=== PATIENT | female | born 1955 | race Hispanic/Latino ===

== ENCOUNTER 2016-09-17 12:18 | Observation (INO) | payer OTHER ==
[~2016-09-17] VITALS: Ht 167.6 cm; Wt 65.8 kg
[2016-09-17] VITALS (8 sets, daily range): BP systolic 141–181; BP diastolic 53–89; PULSE 69–85; RESP 2–20; O2SAT 95–99
[2016-09-17] MEDS ORDERED: LIP40 PO (12:40)
[2016-09-17] MEDS ORDERED: METO25TA3 PO (12:40)
[2016-09-17] MEDS ORDERED: LISI-571 PO (12:40)
[2016-09-17] MEDS ORDERED: METF1000 PO (12:40)
[2016-09-17] MEDS ORDERED: CYAN10008 PO (12:40)
[2016-09-17] MEDS ORDERED: NITR0.3T6 SL (12:40)
[2016-09-17] MEDS ORDERED: CHOL200047 PO (12:40)
--- NOTE | 2016-09-17 12:42 | ED.REPORT ---
HPI-Chest Pain 40 and Over Date of Service September 17, 2016 ED Provider: Chris Ellison DO The patient is a 61 year old female w/ a hx of DM and HTN who presents to the ED due to 01/29, mid-chest chest pain onset 3 hrs ago. The patient describes mid chest pressure that is now moving down into her stomach. She took a nitro sketcher and it did not help at all. She was admitted to [facility] in [facility] for one night 8 days ago for a potential heart attack. Food does not make her symptoms worse. She denies cough, fever, and vomiting. Nursing Notes Stated Complaint: CHEST PAIN Chief Complaint: Chest Pain Nursing Notes Reviewed: Yes Allergies: Coded Allergies: No Known Allergies (Unverified , 09/17/16) Scheduled Aspirin Chew (Aspirin Chew) 81 Mg Chew 81 MG PO DAILY Atorvastatin (Lipitor) 40 Mg Tablet 80 MG PO DAILY Cholecalciferol (Vitamin D3) (Vitamin D3) 2,000 Unit Capsule 2,000 UNIT PO DAILY Cyanocobalamin (Vitamin B-12) (Vitamin B-12) 1,000 Mcg Tablet 1,000 MCG PO DAILY Lisinopril (Lisinopril) 20 Mg Tablet 20 MG PO DAILY Metformin (Glucophage) 1,000 Mg Tablet 1,000 MG PO BID Metoprolol Succinate ER (Toprol XL) 25 Mg Tablet 12.5 MG PO DAILY Scheduled PRN Nitroglycerin SL (Nitroglycerin SL) 0.4 Mg Tab.subl 0.4 MG SL PRN For Chest Pain General Time Seen by MD: 12:39 Chief Complaint Chest pain Hx Obtained From: Patient, Daughter Arrived By: Walk-in Sudden in Onset?: Yes Onset Occurred: 1 - 4 hours ago Symptom Duration: Since onset Location: : Substernal Quality: Painful Severity: Current: Pain level 10 out of 10 Recent Healthcare: Recent doctor visit, Recent hospitalization Similar Sx Previous: Yes Past Medical History Past Medical History HTN DM Smoking History Unknown if Ever Smoker Social History Other Social History: Good social support, From out of town Ambulatory Status Independent Review of Systems Constitutional: Denies: Fever Respiratory: Denies: Non-productive cough Cardiovascular: Reports: Chest pain GI: Denies: Vomiting Complete sys rev & neg: except as marked. Physical Exam Initial Vital Signs Vital Signs (First) Date Time Temp Pulse Resp B/P Pulse Ox O2 Delivery O2 Flow Rate FiO2 09/17/16 12:20 36.4 85 14 181/80 95 Room Air Initial VS: Reviewed General/Constitutional: Awake, Alert, Well appearing, Cooperative, Not toxic appearing Respiratory / Chest: Atraumatic, Breath sounds NL, Breath sounds = bilat Cardiovascular: Heart rate NL, Regular rhythm, Heart sounds NL Abdomen: Soft, Non-tender Lower Extremity / Pelvis / MS: Full range of motion, No swelling, No deformity Skin: Warm, Dry Neurologic: Oriented X3, Speech NL, No motor deficits Head / Eyes: Normocephalic, PERRL Upper Extremity / MS: Full range of motion, No swelling, No deformity Interpretation & Diagnostics Lab Results Interpretation Result Diagram: 09/17/16 1258 09/17/16 1258 Test 09/17/16 12:58 09/17/16 13:05 White Blood Count 6.6th/mm3 (3.8-10.1) Red Blood Count 4.20mil/mm3 (3.90-5.20) Hemoglobin 12.8g/dL (12.0-15.6) Hematocrit 38.0% (35.0-46.0) Mean Corpuscular Volume 90.5fL (81-100) Mean Corpuscular Hemoglobin 30.5pg (27.0-35.0) Mean Corpuscular Hemoglobin Concent 33.7% (32.0-37.0) Red Cell Distribution Width 13.1% (12.3-15.4) Platelet Count 182bil/L (150-400) Neutrophils (%) (Auto) 60.5% (40-74) Lymphocytes (%) (Auto) 29.9% (14-46) Monocytes (%) (Auto) 7.1% (4-12) Eosinophils (%) (Auto) 2.0% (0-5) Basophils (%) (Auto) 0.3% (0-3) D-Dimer < 0.50mg/L FEU (<0.50) Sodium Level 139mEq/L (134-144) Potassium Level 4.2mEq/L (3.5-5.2) Chloride Level 101mEq/L (97-108) Carbon Dioxide Level 22mmol/L (18-29) Blood Urea Nitrogen 17mg/dL (8-27) Creatinine 0.37mg/dL (0.57-1.00) Estimat Glomerular Filtration Rate 253mL/min (>59) Glucose Level 236mg/dL (60-99) Calcium Level 9.4mg/dL (8.5-10.1) Magnesium Level 2.2mg/dL (1.6-2.6) Total Bilirubin 0.8mg/dL (0.0-1.2) Aspartate Amino Transf (AST/SGOT) 20U/L (0-50) Alanine Aminotransferase (ALT/SGPT) 24U/L (0-32) Alkaline Phosphatase 94U/L (25-165) Troponin T < 0.010ug/L (0.0-0.011) Pro-B-Type Natriuretic Peptide 152.1pg/mL (0-287) Total Protein 7.4g/dL (6.4-8.4) Albumin 4.2g/dL (3.4-5.0) Hold Urine Received (Received) ECG Interpretation Time: 13:14 Interpreted by: ED physician Normal ECG Interpretation: Normal sinus rhythm (rate 79) X-Ray Chest Interpretation Chest Xray Interpretation: IMPRESSION: No acute process. Dictated by: Chanelle Quijano M.D. on 09/17/2016 at 13:16 Approved by: Chanelle Quijano M.D. on 09/17/2016 at 13:17 View: Portable Interpretation / Wet Read by: Interpret - Radiologist Re-Eval/Medical Decision Med Decision/Clinical Course This likely represents unstable angina. She continues to have intermittent chest pain despite a reassuring EKG and negative troponin. D-dimer was also negative. Will heparinize and admit for serial troponins and probable stress test. Counseled Regarding: Diagnosis, Lab results, Need for admission Discharge & Departure Primary Impression: Chest pain Chest pain type: unspecified Qualified Code: R07.9 - Chest pain, unspecified Disposition: ADMITTED TO HOSPITAL Discharge Condition All VS Reviewed: Yes Condition: Stable Referrals: [facility] [place] Attestation Portion of this note were transcribed by Linda Orozco. I, Dr. Ellison, personally performed the history, physical exam, and medical decision-making: I reviewed and confirmed the accuracy for the information in the transcribed note. Signed by: garett Watson, 09/17/16 1500 copies to: [facility] Chris Ellison DO September 17, 2016 12:42 Linda Orozco September 17, 2016 12:55
[2016-09-17] MEDS ORDERED: Ondansetron 2 mg/mL 2 mL Inj IVPUSH PRN ×2 (12:50→15:05)
[2016-09-17 13:14] LABS: BASOPHILS % (AUTO) 0.3 % (0-3); MONOCYTES % (AUTO) 7.1 % (4-12); Mean Corpuscular Hemoglobin 30.5 pg (27.0-35.0); Mean Corpuscular Volume 90.5 fL (81-100); NEUTROPHILS % (AUTO) 60.5 % (40-74); Platelet Count 182 bil/L (150-400)
--- NOTE | 2016-09-17 13:18 | DRSVH ---
PROCEDURE: X-RAY CHEST ONE VIEW, PORTABLE ([id number]) INDICATIONS: CP TECHNIQUE: One view of the chest was acquired. COMPARISON: None. FINDINGS: Surgical changes and devices: None. Lungs and pleura: No pleural effusions or pneumothorax. Lungs are clear. Mediastinum: Mediastinal contours appear normal. Heart size is normal. Bones and chest wall: No suspicious bony lesions. Overlying soft tissues appear unremarkable. IMPRESSION: No acute process. Dictated by: Chanelle Quijano M.D. on 09/17/2016 at 13:16 Approved by: Chanelle Quijano M.D. on 09/17/2016 at 13:17
[2016-09-17 13:39] LABS: TROPONIN T < 0.010 ug/L (0.0-0.011)
[2016-09-17 14:05] LABS: Magnesium 2.2 mg/dL (1.6-2.6)
[2016-09-17] MEDS ORDERED: LidocaineVisc 2%:Antacid 1:1 10 mL Syringe PO ONE (14:25)
[2016-09-17] MEDS ORDERED: NITR0.4T6 SL (14:57)
[2016-09-17] MEDS ORDERED: ASPI81TA3 PO (14:57)
[2016-09-17] MEDS ORDERED: LISI-567 PO (14:57)
[2016-09-17] MEDS ORDERED: Alum-Mag Hydrox-Simeth 30 mL Suspension PO PRN ×2 (15:05→16:10)
[2016-09-17] MEDS ORDERED: Heparin 5,000 Unit/mL Inj IVPUSH ONE (15:05)
[2016-09-17] MEDS ORDERED: Heparin 25K Unit/500mL 0.45 NS 25,000 UNIT in IV Premix 1 EACH IV ONE (15:05)
[2016-09-17] MEDS ORDERED: Heparin 25,000 UNIT in 0.9% Sodium Chloride 475 ML IV SCH (15:30)
[2016-09-17] MEDS ORDERED: Polyethylene Glycol (PEG) 17 Gm Powder PO PRN (16:10)
[2016-09-17] MEDS ORDERED: Dextrose 10% 250 ML IV PRN (16:10)
--- NOTE | 2016-09-17 16:23 | PCM.HPMED ---
Subjective Date of Service September 17, 2016 Primary Provider: Admitting Physician: Gigi Sierra Primary Care Physician: Enrike Attending Physician: Gigi Sierra Chief Complaint: Chest pain History of Present Illness: 61 year old Swedish-speaking female with past medical history notable for non- insulin dependant diabetes, hypertension, and hypercholesterolemia presents with complaint of intermittent chest pain. She describes the pain as pressure like feeling starting in her midepigastric area and radiating up and in to her left chest wall. These symptoms started about one week ago and she was hospitalized at a hospital at [place], [place] where she was supposedly told she might have a small heart attack but then she was discharged home with plan for echo and stress test as outpatient. Patient is visiting family members here this weekend and has not had a chance to have further cardiac workup yet. She denies any other associated symptoms such as SOB, nausea, vomiting, diaphoresis , palpitations, lightheadedness or dizziness with this chest pain. She notes that sitting in certain positions seems to make the pain worse while rolling to one side or the other seems to alleviate the pain. She further reports similar symptoms about one year ago at which time she underwent a stress test and cardiac catheterization but was told she does not need any stents. She works in a farm field and otherwise denies any recent heavy lifting or trauma to her chest. Review of Systems: Constitutional: Negative, except as otherwise mentioned in the history above. Ophthalmologic: Negative, except as otherwise mentioned in the history above. Cardiovascular: Negative, except as otherwise mentioned in the history above. Respiratory: Negative, except as otherwise mentioned in the history above. Gastrointestinal: Negative, except as otherwise mentioned in the history above. Genitourinary: Negative, except as otherwise mentioned in the history above. Musculoskeletal: Negative, except as otherwise mentioned in the history above. Neurological: Negative, except as otherwise mentioned in the history above. Psychiatric: Negative, except as otherwise mentioned in the history above. Hematologic/Lymphatic: Negative, except as otherwise mentioned in the history above. Allergic/Immunologic: Negative, except as otherwise mentioned in the history above. Allergies Coded Allergies: No Known Allergies (Unverified , 09/17/16) Home Medications Atorvastatin 40 Mg Tablet 80 Mg PO DAILY Lisinopril 20 Mg Tablet 20 Mg PO DAILY Metoprolol Succinate ER 25 Mg Tablet (Toprol XL) 12.5 Mg PO DAILY Nitroglycerin SL 0.4 Mg Tab.Subl 0.4 Mg SL PRN Aspirin Chew 81 Mg Chew 81 Mg PO DAILY Metformin 1,000 Mg Tablet 1,000 Mg PO BID Cholecalciferol (Vitamin D3) 2,000 Unit Capsule 2,000 Unit PO DAILY Cyanocobalamin (Vitamin B-12) 1,000 Mcg Tablet 1,000 Mcg PO DAILY Exam Vital Signs & I/O Vital Sign- Last 8 Hours Date Time Temp Pulse Resp B/P Pulse Ox O2 Delivery O2 Flow Rate FiO2 09/17/16 14:40 76 17 153/65 99 09/17/16 13:31 77 18 141/53 96 Room Air 09/17/16 12:20 36.4 85 14 181/80 95 Room Air Lab & Micro Results Laboratory Tests Test 09/17/16 12:58 09/17/16 13:05 White Blood Count 6.6th/mm3 (3.8-10.1) Red Blood Count 4.20mil/mm3 (3.90-5.20) Hemoglobin 12.8g/dL (12.0-15.6) Hematocrit 38.0% (35.0-46.0) Mean Corpuscular Volume 90.5fL (81-100) Mean Corpuscular Hemoglobin 30.5pg (27.0-35.0) Mean Corpuscular Hemoglobin Concent 33.7% (32.0-37.0) Red Cell Distribution Width 13.1% (12.3-15.4) Platelet Count 182bil/L (150-400) Neutrophils (%) (Auto) 60.5% (40-74) Lymphocytes (%) (Auto) 29.9% (14-46) Monocytes (%) (Auto) 7.1% (4-12) Eosinophils (%) (Auto) 2.0% (0-5) Basophils (%) (Auto) 0.3% (0-3) D-Dimer < 0.50mg/L FEU (<0.50) Sodium Level 139mEq/L (134-144) Potassium Level 4.2mEq/L (3.5-5.2) Chloride Level 101mEq/L (97-108) Carbon Dioxide Level 22mmol/L (18-29) Blood Urea Nitrogen 17mg/dL (8-27) Creatinine 0.37mg/dL (0.57-1.00) Estimat Glomerular Filtration Rate 253mL/min (>59) Glucose Level 236mg/dL (60-99) Calcium Level 9.4mg/dL (8.5-10.1) Magnesium Level 2.2mg/dL (1.6-2.6) Total Bilirubin 0.8mg/dL (0.0-1.2) Aspartate Amino Transf (AST/SGOT) 20U/L (0-50) Alanine Aminotransferase (ALT/SGPT) 24U/L (0-32) Alkaline Phosphatase 94U/L (25-165) Troponin T < 0.010ug/L (0.0-0.011) Pro-B-Type Natriuretic Peptide 152.1pg/mL (0-287) Total Protein 7.4g/dL (6.4-8.4) Albumin 4.2g/dL (3.4-5.0) Hold Urine Received (Received) Result Diagram: 09/17/16 1258 09/17/16 1258 PMH 1. Hypertension 2. Diabetes mellitus 3. Hypercholesterolemia Family History Father with heart disease in his 70's Social History Hx Alcohol Use: No Hx Substance Use: No Hx Tobacco Use: No Smoking Status: Never Smoker Exam Vital Signs Vital Sign - Last Date Time Temp Pulse Resp B/P Pulse Ox O2 Delivery O2 Flow Rate FiO2 09/17/16 14:40 76 17 153/65 99 09/17/16 13:31 Room Air 09/17/16 12:20 36.4 General: Alert, Oriented X3, Cooperative, No Acute Distress Head: Normal Eyes: PERRLA, EOMI, Scleral Anicteric Nose: Mucous Membr Moist/[place] Mouth: Mucous Membr Moist/[place] Neck: Supple Chest & Lungs: Chest Wall Normal, Clear to auscultation & percussion, Other ( left chest wall (near sternum) is tender to palpation) Cardiovascular: Regular Rate/Rhythm Pulses: NL carotid, radial, femoral, DP, PT Abdomen: Non-tender, Non-distended, Normoactive bowel tones, Soft Extremities: No cyanosis/clubbing/edma bilat Skin: Other (no ulcer or rash) Neurological: Grossly Neurologically Intact, Cranial Nerves 2-12 Intact, Normal Speech Lymphatic: Other Lymph Nodes (no significant lymphadenopathy) Lab and Diagnostics Result Diagram: 09/17/16 1258 09/17/16 1258 X-Rays, CTs and MRIs Date of Service: 09/17/16 1232 PROCEDURE: X-RAY CHEST ONE VIEW, PORTABLE ([id number]) IMPRESSION: No acute process. Dictated by: Chanelle Quijano M.D. on 09/17/2016 at 13:16 Approved by: Chanelle Quijano M.D. on 09/17/2016 at 13:17 12-lead ECG NSR @ about [address] elevation/depression Assessment & Plan 61 year old Swedish-speaking female with past medical history notable for non- insulin dependant diabetes, hypertension, and hypercholesterolemia presents with complaint of intermittent chest pain. # Acute chest pain, present on admission. - Admit to tele - Rule out OH, given multiple cardiac risk factors, by cycling Trop - Echo and stress test in am - ASA daily - Continue with home dose Lipitor - EKG reassuring and given pain is reproducible with palpation also reassuring and suggestive of likely musculoskeletal pain as opposed to cardiac. - Protonix incase symptoms related to GI - Given low suspicion of cardiac event and reassuring workup so far, noted above , will not continue Heparin drip that was started in ED unless Troponin start to rise or patient develop additional symptoms # Chronic hypertension, present on admission. - Continue with home medications including Lisinopril and Metoprolol # Diabetes mellitus, chronic. - ISS while inpatient - Hold home dose Metformin - HgA1C check # Hypercholesterolemia. - Check fasting lipid panel - Continue with home dose Lipitor Expected length of hospital stay is less than 2 midnights and likely home tomorrow. GI Prophylaxis: Proton Pump Inhibitor VTE Prophylaxis: Sub-Q Heparin (Unfractionated) Resuscitation Status: CPR: Attempt Resuscitation (discussed and verified with patient) Time spent 65 min Gigi Sierra September 17, 2016 16:23
[2016-09-17] MEDS: Heparin 5,000 Unit/mL Inj SUBQ SCH (16:30)
[2016-09-17] MEDS: Insulin Human REGular 300 Unit/3 mL Inj SUBQ SCH ×2 (17:00→22:00)
--- NOTE | 2016-09-17 17:30 | NUR ---
Admission Patient arrived on unit via gurney. Patient Sami speaking and accompanied by family. Surgical Services Assistant on a stick used for admission interview. Patient reports she had chest pains and recently was seen in the hospital in [facility] for chest pain, and was released to have followup testing done as an outpatient. She is here visiting over the holiday weekend, and began having increased chest pains. She denied shortness of breath, nausea, headache or dizziness. Reports pain is around Lt breast and does not radiate. Patient rates her pain as 6/10. Patient reported she had a previous cardiac workup with cauterization but no stents were placed. Patient given morphine 1 mg for chest pain in her Rt IV access. 30 min later, patient reported she was having increased pain in her Lt breast and Lt hand "after you injected that medicine into me". one hour after morphine was given, patient reported nausea, dizziness and a headache.
[2016-09-17] MEDS: Pantoprazole 40 mg ER24 Tablet PO SCH (18:34)
[2016-09-17] MEDS: Ondansetron 2 mg/mL 2 mL Inj IVPUSH PRN ×2 (20:42→20:43)
[2016-09-18] MEDS: Heparin 5,000 Unit/mL Inj SUBQ SCH ×3 (00:30→08:52)
[2016-09-18 01:16] VITALS: BP 142/59; PULSE 68; RESP 18; O2SAT 98
[2016-09-18 05:39] VITALS: BP 136/66; PULSE 65; RESP 18; O2SAT 96
[2016-09-18 05:47] LABS: Mean Corpuscular Hemoglobin 30.3 pg (27.0-35.0); Mean Corpuscular Volume 90.5 fL (81-100)
[2016-09-18 06:21] LABS: TROPONIN T 0.01 ug/L (0.0-0.011)
--- NOTE | 2016-09-18 07:35 | NUR ---
NOC/Education Pt was anxious about the upcoming stress test. 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 Pt however denies chest pain, sob, n/v or abd discomfort. Pt was put on NPO since MN for the upcoming test and educated about not taking any caffeine, Beta blockers. Hourly rounding done, VSS and has been afebrile. Telemetry monitoring noted no abnormal ektopy.
[2016-09-18] MEDS ORDERED: MeTOProlol XL 25 mg ER24 Tablet PO SCH (08:30)
[2016-09-18] MEDS: Pantoprazole 40 mg ER24 Tablet PO SCH (08:52)
[2016-09-18] MEDS: Insulin Human REGular 300 Unit/3 mL Inj SUBQ SCH ×2 (09:09→12:03)
[2016-09-18 09:21] VITALS: PULSE 67
[2016-09-18 09:48] VITALS: BP 128/67; PULSE 60; RESP 18; O2SAT 98
--- NOTE | 2016-09-18 14:11 | NUR ---
Pain Pt reports continuous aching pain 5/10 with respirations. Testing ongoing to diagnose r/o cardiac issues. Administered PRN 1mg Morphine IV push. Pt reports pain is resolved after administration. Continuing to evaluate and monitor.
--- NOTE | 2016-09-18 14:16 | DRSVH ---
[facility] [address] [place] [address] Echocardiogram Report Name: VELMA AGUILAR DStudy Date: 017 Height: 66 in Hospital Exam Location: [facility] Weight: 145 lb Gender: Female BSA: 1.7 m2 : 1955 Age: 61 yrs BP: 136/66 mmHg Reason For Study: Chest pain Performed By: Erika Oleary Referring Physician: ROSALEE MANZANO Interpretation Summary The left ventricle is normal in size, wall thickness, and systolic function without any focal wall motion abnormalities with the ejection fraction visually estimated to be 65-70%. The E/A ratio is reversed, suggesting impaired early relaxation of the left ventricle or a reduced preload state. The right ventricle grossly appears normal in size with probable normal systolic function. The right ventricular systolic pressure is estimated to be at least 33 mmHg assuming a right atrial pressure of 3 mm Hg. Both atria are normal in size. There is no significant valvular heart disease. Procedure: A two-dimensional transthoracic echocardiogram with color flow and Doppler was performed in limited views only. The study quality was technically adequate. There is no prior echocardiogram noted for this patient. Patient was in sinus rhythm with a heart rate varying from 71-77 bpm. Left Ventricle: The left ventricle is normal in size, wall thickness, and systolic function without any focal wall motion abnormalities. The ejection fraction is estimated to be 65-70%. The E/A ratio is reversed, suggesting impaired early relaxation of the left ventricle or a reduced preload state. Right Ventricle: The right ventricle grossly appears normal in size with probable normal systolic function. Atria: Both atria are normal in size. Mitral Valve: There is mild mitral annular calcification. The mitral valve leaflets appear mildly thickened, but open well. There is trace mitral regurgitation. Aortic Valve: The aortic valve is trileaflet. The aortic valve is slightly calcified. The aortic valve opens well. There is no aortic regurgitation. Tricuspid Valve: The tricuspid valve is normal in structure and function. There is mild tricuspid regurgitation. The right ventricular systolic pressure is estimated at at least 33 mmHg assuming a right atrial pressure of 3 mm Hg. Pulmonic Valve: The pulmonic valve is normal in structure and function. There is trace pulmonic regurgitation. There is no significant valvular heart disease. Great Vessels: The aortic root is normal size. The ascending aorta could not be visualized. The IVC is of normal diameter and collapses greater than 50% with a sniff. This suggests a low right atrial pressure of 3 mm Hg. Pericardium/ Pleura There is no pericardial effusion. There is no pleural effusion. MMode/2D Measurements & Calculations LVIDd: 4.7 cm RA long axis LVOT diam LVIDs: 2.9 cm LA A2 area: 17.2 cm FS: 39.1 % LA A4 area: 18.7 cm RA area Ao root diam EPSS: 0.48 cm LA length (vol): 5.7 cm : 3.0 cm IVSd: 1.0 cm LA vol: 48.0 ml : 15.2 cm LVPWd: 0.98 cm LA vol index RA vol: 33.1 ml RA : 27.4 ml/m2 : 18.9 mm2 LV jacome. diameter/BSA LV sys. diameter/BSA TAPSE: 2.2 cm (cm/m^2): 2.7 (cm/m^2): 1.6 Doppler Measurements & Calculations Ao V2 max MV E max bharathi MV E/A: 0.82 TR max bharathi : 167.2 cm/sec : 68.0 cm/sec Med Peak E' Bharathi : 276.4 cm/sec Ao max P.2 mmHg MV A max bharathi TR max PG Ao mean P.0 mmHg : 83.1 cm/sec E/E' med: 10.1 : 30.6 mmHg LVOT Max Bharathi Lat Peak E' Bharathi PA V2 max : 125.6 cm/sec : 76.6 cm/sec RIDGE(I,D): 2.5 cm E/E' lat: 8.8 PA mean PG sev ratio: 0.85 E/e' average: 9.5 : 1.3 mmHg MV dec time: 0.16 sec Ao V2 mean LV V1 max PG PA V2 mean : 101.5 cm/sec : 54.8 cm/sec Ao V2 VTI: 29.8 cmLV V1 VTI: 25.5 cmPA pr(Accel) : 14.8 mmHg RIDGE(V,D): 2.2 cm2 RIDGE indexed to BSA (cm^2/m^2): 1.4 Reading Physician:02:15 PM
[2016-09-18 14:43] VITALS: BP 123/64; PULSE 72; RESP 18; O2SAT 97
--- NOTE | 2016-09-18 14:50 | NUR ---
Social Work: Screening D: EMR reviewed. Pt is a 61 y/o female admitted for chest pain, R/O ACS per H&P. SW met with pt and family at bedside to conduct initial assessment. Pt was alert and oriented x3. Pt speaks Romansh and minimal Indonesian. Pt's daughter, Chelsey Branham, assisted in answering questions. SW explained role and wrote phone number on white board. Pt's daughter confirmed that pt lives at home in [place], [place] with family. Pt's insurance is [employer] and PCP is Hamilton Kurtz DO. SW confirmed pt has not completed DPOA/advanced directive ppw and declined any further information. Pt will complete ppw when she returns home to [place]. Pt's daughter and family confirmed they will transport pt home via POV when pt is medically stable. SW does not anticipate any discharge needs at this time but will continue to follow EMR for needs that may arise prior to discharge. A: Pt who is independent at baseline. P: Pt's daughter and family confirmed they will transport pt home via POV when pt is medically stable. SW does not anticipate any discharge needs at this time but will continue to follow EMR for needs that may arise prior to discharge. Carmen Paulson MSW
--- NOTE | 2016-09-18 15:38 | PCM.DIMED ---
Discharge Instructions Date of Service September 18, 2016 Dates of Hospitalization September 17, 2016 at 15:35 Discharge Diagnosis Discharge Diagnosis # Acute chest pain, present on admission. Improved. - Unclear etiology but likely musculoskeletal and due to costochondritis. - Ruled out for acute myocardial infarction and with negative cardiac workup including unremarkable stress test and echocardiogram # Chronic hypertension, present on admission. Stable. # Diabetes mellitus, chronic. # Hypercholesterolemia. Stable. - Triglyceride: 128 - Cholesterol: 128 - LDL: 55.400 - HDL: 47 Diet Discharge Diet: Low fat, Low Sodium, Heart Healthy, Diabetic Activity Discharge Activity: No restrictions Call your provider Call your provider for: Fever or Chills, Shortness of breath, Bleeding, Chest pain Patient Instructions Patient Instructions Seek immediate medical attention if any new or worsening signs or symptoms occur. Follow-up plan 1. Followup with primary care provider in 7-10 days Gigi Sierra September 18, 2016 15:38
--- NOTE | 2016-09-18 16:09 | NUR ---
Discharge Interpretive services called for MD and Nurse Translation. Soumya - from interpretive services on site. Reviewed discharge information and care notes with pt - disclaimer signed. IV DCd intact, tele removed, all belongings with pt. Pt reports minimal pain 2/10. Denies SOB. Strong and steady on feet. Pt declines WC escort and prefers to walk out on feet. Pt going home with family - daughter and .
--- NOTE | 2016-09-18 16:16 | PCM.DC.MED ---
Discharge Summary Date of Service September 18, 2016 Dates of Hospitalization Date of Hospital Admission September 17, 2016 at 15:35 Date of Discharge: September 18, 2016 Providers: Admitting Physician: Gigi Sierra Primary Care Physician: Enrike Attending Physician: Gigi Sierra Diagnosis at Time of Discharge Diagnosis at Time of Discharge # Acute chest pain, present on admission. Improved. - Unclear etiology but likely musculoskeletal and due to costochondritis. - Ruled out for acute myocardial infarction and with negative cardiac workup including unremarkable stress test and echocardiogram # Chronic hypertension, present on admission. Stable. # Diabetes mellitus, chronic. # Hypercholesterolemia. Stable. - Triglyceride: 128 - Cholesterol: 128 - LDL: 55.400 - HDL: 47 Procedures XRay, CTs & MRIs Date of Service: 09/17/16 1232 PROCEDURE: X-RAY CHEST ONE VIEW, PORTABLE ([id number]) IMPRESSION: No acute process. Dictated by: Chanelle Quijano M.D. on 09/17/2016 at 13:16 Approved by: Chanelle Quijano M.D. on 09/17/2016 at 13:17 ECG 12 Lead NSR @ about [address] elevation/depression Cardiac Echo Impression Date of Service: 09/18/16 1609 Echocardiogram Report Interpretation Summary The left ventricle is normal in size, wall thickness, and systolic function without any focal wall motion abnormalities with the ejection fraction visually estimated to be 65-70%. The E/A ratio is reversed, suggesting impaired early relaxation of the left ventricle or a reduced preload state. The right ventricle grossly appears normal in size with probable normal systolic function. The right ventricular systolic pressure is estimated to be at least 33 mmHg assuming a right atrial pressure of 3 mm Hg. Both atria are normal in size. There is no significant valvular heart disease. Reading Physician:02:15 PM Other Diagnostics Official dictation of stress test pending but per verbal report it is noted to be "normal or low risk study" Brief History 61 year old [place]an-speaking female with past medical history notable for non- insulin dependant diabetes, hypertension, and hypercholesterolemia presents with complaint of intermittent chest pain. She describes the pain as pressure like feeling starting in her midepigastric area and radiating up and in to her left chest wall. These symptoms started about one week ago and she was hospitalized at a hospital at [place], [place] where she was supposedly told she might have a small heart attack but then she was discharged home with plan for echo and stress test as outpatient. Patient is visiting family members here this weekend and has not had a chance to have further cardiac workup yet. She denies any other associated symptoms such as SOB, nausea, vomiting, diaphoresis , palpitations, lightheadedness or dizziness with this chest pain. She notes that sitting in certain positions seems to make the pain worse while rolling to one side or the other seems to alleviate the pain. She further reports similar symptoms about one year ago at which time she underwent a stress test and cardiac catheterization but was told she does not need any stents. She works in a farm field and otherwise denies any recent heavy lifting or trauma to her chest. Hospital Course # Acute chest pain, present on admission. still ongoing but improved. - Ruled out for NV with negative Troponins - Echo and stress unremarkable as noted above - Suspect chest pain likely musculoskeletal and perhaps costochondritis given reproducible with palpation on exam # Chronic hypertension, present on admission. stable. - Continue with home medications including Lisinopril and Metoprolol # Diabetes mellitus, chronic. - Continue home meds - HgA1C result pending by time of discharge # Hypercholesterolemia. stable - Continue with home dose Lipitor Exam Vital Signs (Last) Date Time Temp Pulse Resp B/P Pulse Ox O2 Delivery O2 Flow Rate FiO2 09/18/16 14:43 36.4 72 18 123/64 97 Room Air Exam General: Alert, Cooperative, No Acute Distress Eyes: Scleral Anicteric Neck: Supple Chest & Lungs: Chest Wall Normal, Clear to auscultation bilat Cardiovascular: Regular Rate/Rhythm Abdomen: Non-tender, Non-distended, Normoactive bowel tones, Soft Extremities: No cyanosis/clubbing/edema bilat Test 09/17/16 12:58 09/17/16 13:05 09/17/16 21:05 09/18/16 05:10 Neutrophils (%) (Auto) 60.5% (40-74) Lymphocytes (%) (Auto) 29.9% (14-46) Monocytes (%) (Auto) 7.1% (4-12) Eosinophils (%) (Auto) 2.0% (0-5) Basophils (%) (Auto) 0.3% (0-3) D-Dimer < 0.50mg/L FEU (<0.50) Magnesium Level 2.2mg/dL (1.6-2.6) Total Bilirubin 0.8mg/dL (0.0-1.2) Aspartate Amino Transf (AST/SGOT) 20U/L (0-50) Alanine Aminotransferase (ALT/SGPT) 24U/L (0-32) Alkaline Phosphatase 94U/L (25-165) Pro-B-Type Natriuretic Peptide 152.1pg/mL (0-287) Total Protein 7.4g/dL (6.4-8.4) Albumin 4.2g/dL (3.4-5.0) Hold Urine Received (Received) Activated Partial Thromboplast Time 24.6sec (22.8-33.0) White Blood Count 6.9th/mm3 (3.8-10.1) Red Blood Count 4.22mil/mm3 (3.90-5.20) Hemoglobin 12.8g/dL (12.0-15.6) Hematocrit 38.2% (35.0-46.0) Mean Corpuscular Volume 90.5fL (81-100) Mean Corpuscular Hemoglobin 30.3pg (27.0-35.0) Mean Corpuscular Hemoglobin Concent 33.5% (32.0-37.0) Red Cell Distribution Width 13.0% (12.3-15.4) Platelet Count 192bil/L (150-400) Sodium Level 139mEq/L (134-144) Potassium Level 4.4mEq/L (3.5-5.2) Chloride Level 101mEq/L (97-108) Carbon Dioxide Level 23mmol/L (18-29) Blood Urea Nitrogen 13mg/dL (8-27) Creatinine 0.38mg/dL (0.57-1.00) Estimat Glomerular Filtration Rate 246mL/min (>59) Glucose Level 170mg/dL (60-99) Calcium Level 9.6mg/dL (8.5-10.1) Troponin T 0.010ug/L (0.0-0.011) Triglycerides Level 128mg/dL (0-149) Cholesterol Level 128mg/dL (100-199) LDL Cholesterol, Calculated 55.400mg/dL (0-99) VLDL Cholesterol 25.600mg/dL HDL Cholesterol 47mg/dL (>39) Cholesterol/HDL Ratio 2.72 (0.0-4.4) Discharge Medications Discharge Medications Aspirin Chew (Aspirin Chew) 81 Mg Chew 81 MG PO DAILY (Reported) Atorvastatin (Lipitor) 40 Mg Tablet 80 MG PO DAILY (Reported) Cholecalciferol (Vitamin D3) (Vitamin D3) 2,000 Unit Capsule 2,000 UNIT PO DAILY (Reported) Cyanocobalamin (Vitamin B-12) (Vitamin B-12) 1,000 Mcg Tablet 1,000 MCG PO DAILY (Reported) Lisinopril (Lisinopril) 20 Mg Tablet 20 MG PO DAILY (Reported) Metformin (Glucophage) 1,000 Mg Tablet 1,000 MG PO BID (Reported) Metoprolol Succinate ER (Toprol XL) 25 Mg Tablet 12.5 MG PO DAILY (Reported) As needed Nitroglycerin SL (Nitroglycerin SL) 0.4 Mg Tab.subl 0.4 MG SL PRN For Chest Pain (Reported) Followup Plan Disposition: Home Follow-up plan 1. Followup with primary care provider in 7-10 days Discharge Diet: Low fat, Low Sodium, Heart Healthy, Diabetic Discharge Activity: No restrictions Patient Instructions Seek immediate medical attention if any new or worsening signs or symptoms occur. patient expresses clear verbal understanding of noted assessment, plan, and recommendations and agrees Time spent 30 min Gigi Sierra September 18, 2016 16:16
--- NOTE | 2016-09-18 17:27 | DRSVH ---
PROCEDURE: 1 DAY TREADMILL STRESS TEST Rest and exercise myocardial perfusion SPECT with gated imaging and ejection fraction RADIOPHARMACEUTICAL: 8.78 mCi Tc-99m tetrafosmin IV at rest and 24.2 mCi Tc-99m tetrafosmin IV at pea k exercise. [id number] was performed. INDICATIONS: chest pain TECHNIQUE: Radiopharmaceutical was injected at peak stress test, and also at rest. SPECT images wer e obtained. SPECT myocardial perfusion images were displayed in short axis, horizontal long axis, an d vertical long axis views. Gated images were reviewed using [employer] software. COMPARISON: None. CARDIAC STRESS: A standard [place] treadmill exercise tolerance test was performed by the patient under the supervision of an attending staff. The patient exercised for 6 minutes and 49 seconds; functional aerobic impai rment (IGNACIO) is -2 %. Hemodynamic data: There is normal blood pressure and heart rate response to exercise stress. Reva t achieved 94% of maximum predicted heart rate at peak exercise. Symptoms: Patient denied chest pain during exercise. EKG: Borderline abnormal ECG. There is some slight ST depressions during recovery stage. FINDINGS: Raw data: There is good myocardial labeling by radiotracer. No significant motion artifacts. Left ventricle function: Gated images demonstrate normal left ventricle wall thickening. No segment al wall motion abnormality. The left ventricle resting end-diastolic volume is 50 mL. Left ventricl e stress ejection fraction is 87%; normal values are above 45%. Myocardial perfusion: There is normal distribution of activity in the left and right ventricular raeann cardium. No fixed or reversible perfusion defects. IMPRESSION: Overall this is a low risk study. There is no evidence of fixed or reversible perfusion d efects. EF is normal. Patient denied any chest pain during treadmill study. ECG is borderline abnorma l with minor ST depressions during recovery stage one with the presence of a normal imaging study thi s is still a low risk study. Dictated by: Jeffrey Ellis Jr., M.D. on 09/18/2016 at 17:16 Approved by: Jeffrey Ellis Jr., M.D. on 09/18/2016 at 17:25
== END 2016-09-18 16:42 | disposition home or self-care (01) ==
LOC: SED 12:18 → MPC 15:35
PROVIDERS: ADMIT Internal Medicine; ATTEND Internal Medicine
DX: R07.9 Chest pain, unspecified (principal); M94.0 Chondrocostal junction syndrome [Tietze]; I10 Essential (primary) hypertension; E11.9 Type 2 diabetes mellitus without complications; E78.00 Pure hypercholesterolemia, unspecified; Z79.82 Long term (current) use of aspirin; Z79.84 Long term (current) use of oral hypoglycemic drugs
CPT/HCPCS: 36415; 71010; 78452; 80048; 80053; 80061; 83036; 83735; 83880; 84484; 85025; 85027; 85378; 85730; 93005; 93017; 93306; 96374; 96375; 96376; 99285; A9502; G0378; J1644; J1815; J2270; J2405; J7040